=== PATIENT | male | born 1995 | race Caucasian/White ===

== ENCOUNTER 2022-08-22 03:35 | Emergency (ER) | payer BC ==
[~2022-08-22] VITALS: Ht 175.3 cm; Wt 83.0 kg
[2022-08-22 03:52] VITALS: BP_SYST 119
--- NOTE | 2022-08-22 03:55 | NUR ---
RECEIVED PT FROM TRIAGE. AAOX4, VOICES NO C/O N/V OR DIZZINESS. CC: WHILE AT WORK, STANDING BEHIND A TABLE, IT FELL HITTING HIM IN THE MIDDLE OF HIS HEAD- UPON ASSESSING REDNESS NOTED, NO EDEMA, PT VOICED NO C/O PAIN TO TOUCH. PT W/ C/O A H/A 5/10 TO LEFT LATERAL FRONTAL LOBE AREA. PENDING ER MD ASSESSMENT.
--- NOTE | 2022-08-22 04:30 | NUR ---
SEEN BY GLADIS KEARNS.
[2022-08-22] MEDS ORDERED: IBUPROFEN 600 MG TABLET PO ONE (04:45)
[2022-08-22] MEDS ORDERED: ACETAMINOPHEN 500 MG TABLET PO ONE (04:45)
[2022-08-22 05:35] VITALS: BP_SYST 110
--- NOTE | 2022-08-22 05:35 | NUR ---
Patient given written and verbal discharge instructions and verbalizes understanding. ER MD discussed with patient the results and treatment provided. Patient in stable condition. ID arm band removed. No Rx given. Patient educated on pain management and to follow up with PMD. Pain Scale 0/10. Opportunity for questions provided and answered.
== END 2022-08-22 05:35 | disposition home or self-care (01) ==
LOC: SED 03:35
DX: S09.90XA Unspecified injury of head, initial encounter (principal); Z88.1 Allergy status to other antibiotic agents; Z79.899 Other long term (current) drug therapy; W01.198A Fall on same level from slipping, tripping and stumbling with subsequent striking against other object, initial encounter; Y93.89 Activity, other specified; Y92.89 Other specified places as the place of occurrence of the external cause; Y99.8 Other external cause status
CPT/HCPCS: 99283